=== PATIENT | female | born 1980 ===

== ENCOUNTER → 2020-05-29 | Outpatient (CLI) | payer OTHER ==
[~2020-05-29] MED LIST: ALPR.25 PO; ALPR.5; ESCI20 PO; ESCI5 PO; NIKKI 3 MG-0.01 EACH PO
== END | disposition home or self-care (01) ==
LOC: LAB SHORT 13:21 → LAB 13:21
DX: N39.0 Urinary tract infection, site not specified (principal)
CPT/HCPCS: 87077; 87086; 87186

== ENCOUNTER 2021-07-27 10:05 | Emergency (ER) | payer OTHER | END 2021-07-27 10:25 | disposition left against medical advice (07) | LOC: ER 10:05 | DX: Z53.21 Procedure and treatment not carried out due to patient leaving prior to being seen by health care provider (principal) | CPT/HCPCS: 99281-25 ==

== ENCOUNTER → 2022-06-20 | Outpatient (CLI) | payer BC ==
[2022-06-21 10:40] LABS: Hematocrit 47.4 % (33.0-51.0); Hemoglobin 14.8 g/dL (11.5-16.0); Mean Corpuscular HGB 31.6 pg (26.0-34.0); Mean Corpuscular HGB Conc 31.2 g/dL (31.5-36.5); Mean Corpuscular Volume 101 fL (80-100); Mean Platelet Volume 9.8 fL (9.1-12.4); Platelet Count 420 K/mm3 (150-400); RDW Coefficient Variation 12.9 % (11.7-14.2); RDW Standard Deviation 48.4 fL (35.1-46.3); Red Blood Cell Count 4.69 M/mm3 (3.80-5.20); White Blood Cell Count 6.96 K/mm3 (4.00-11.30)
== END ==
LOC: LAB 08:57 → LAB SHORT 08:57
PROVIDERS: Physician Assistant
DX: Z13.220 Encounter for screening for lipoid disorders (principal); Z13.1 Encounter for screening for diabetes mellitus; Z13.6 Encounter for screening for cardiovascular disorders; Z13.21 Encounter for screening for nutritional disorder; N95.9 Unspecified menopausal and perimenopausal disorder; Z13.228 Encounter for screening for other metabolic disorders; Z13.29 Encounter for screening for other suspected endocrine disorder; G43.909 Migraine, unspecified, not intractable, without status migrainosus; L65.8 Other specified nonscarring hair loss; R63.5 Abnormal weight gain; R53.83 Other fatigue; R68.82 Decreased libido; F41.1 Generalized anxiety disorder
CPT/HCPCS: 85027